=== PATIENT | male | born 1980 | race Caucasian/White ===

== ENCOUNTER 2016-09-03 14:38 | Outpatient (CLI) ==
--- NOTE | 2016-09-03 21:25 | MRI ---
EXAM: MRI left shoulder without contrast. HISTORY: Chronic left shoulder pain. Numbness. No left shoulder surgery reported.. TECHNIQUE: Using a local coil on a high field strength magnet multiplanar multisequence MRI was per formed of the left shoulder without intravenous or intra-articular gadolinium contrast.. FINDINGS: I do not have prior radiographs of the left shoulder available for comparison at the time of this dictation. A Type I acromion. Coracoacromial ligament/arch intact without definitive thickening. Mild left ac romioclavicular joint osteoarthrosis. Deltoid musculature of normal signal intensity. Trace fluid subacromial/subdeltoid bursa. Muscle bulk of the rotator cuff shows no acute muscle strain or overt atrophy. Mild/moderate supras pinatus tendinosis. Trace insertional fissuring over the supraspinatus/infraspinatus interval. No full-thickness rotator cuff tear identified. Posterior intact teres minor tendon fibers. Anterior intact subscapularis tendon fibers. The long head of the biceps tendon shows intact fibers located in expected position within the bicipital groove and within normal limits signal intensity and morph ology. The left humeral head is of normal morphology and seated. No left glenohumeral joint centered subch ondral bone marrow edema or bone erosions. Physiologic amount of fluid left glenohumeral joint. Th e left glenoid labrum grossly intact on this non-arthrographic examination.. IMPRESSION: Mild left acromioclavicular joint osteoarthrosis. Mild/moderate supraspinatus tendinosis. Trace insertional fissuring over the supraspinatus/infraspi natus interval. No full-thickness rotator cuff tear identified. Trace fluid subacromial/subdeltoid bursa may reflect an overlying degree bursitis and/or be sequela prior shoulder injection. Correla te clinically. Recommendation is obtainment and correlation with plain film radiographs of the left shoulder as non e are available for comparison at the time of this dictation.
== END 2016-09-03 14:39 | disposition home or self-care (01) ==
LOC: RAD 14:38
PROVIDERS: ATTEND Physician Assistant
DX: M25.512 Pain in left shoulder (principal)
CPT/HCPCS: 73221

== ENCOUNTER 2017-01-16 16:36 | Emergency (ER) ==
[2017-01-16 16:50] VITALS: BP 126/77; TEMP 98.3; BMI 26.3
== END 2017-01-16 16:50 | disposition left against medical advice (07) ==
LOC: ED 16:36
DX: S99.912A Unspecified injury of left ankle, initial encounter (principal); W20.8XXA Other cause of strike by thrown, projected or falling object, initial encounter